=== PATIENT | female | born 1970 | race African-American/Black ===

== ENCOUNTER 2023-01-22 09:27 | Emergency (ER) | payer OTHER | END 2023-01-22 11:56 | disposition home or self-care (01) | LOC: CSHERS 09:27 | DX: G89.29 Other chronic pain (principal); M54.2 Cervicalgia | CPT/HCPCS: 72040 ==

== ENCOUNTER 2023-11-04 13:10 | Outpatient (CLI) | payer OTHER | END 2023-11-04 13:11 | disposition home or self-care (01) | LOC: CSHMAMMO 13:10 | PROVIDERS: ATTEND Specialist | DX: Z12.31 Encounter for screening mammogram for malignant neoplasm of breast (principal) | CPT/HCPCS: 77067 ==